=== PATIENT | female | born 1995 | race Caucasian/White ===

== ENCOUNTER 2023-09-10 12:38 | Emergency (ER) | payer OTHER, SELFPAY ==
[2023-09-10 12:51] VITALS: BP 153/82; PULSE 91; RESP 16; TEMP 36.7; O2SAT 100
--- NOTE | 2023-09-10 12:53 | ED.SKABFB ---
HPI - Skin/Abscess/Foreign Bdy General Chief complaint: Skin/Abscess/Foreign Body Stated complaint: Left Under Arm Wound Time Seen by Provider: 09/10/23 12:54 Source: patient Mode of arrival: ambulatory Limitations: no limitations History of Present Illness HPI narrative: 27 y/o female presented for c/o wound to left underarm first noticed about a week ago. Mother states she has applied a salve and Neosporin to the site and says the site appears to be healing. It was more red at onset and has been Draining green pus after a cream colored nodule fell off it. Denies pain to the site. Related Data Home Medications Medication Instructions Recorded Confirmed ergocalciferol (vitamin D2) 1,250 1,250 mcg PO WEEKLY 09/10/23 09/10/23 mcg (50,000 unit) capsule Allergies Allergy/AdvReac Type Severity Reaction Status Date / Time adhesive tape Allergy Redness of Verified 09/10/23 12:59 Skin Review of Systems Review of Systems: CONSTITUTIONAL: Denies body aches, fever, chills, or sweats. EYES: Denies visual changes, redness, or discharge. ENT: Denies rhinorrhea, congestion CARDIOVASCULAR: Denies chest pain, palpitations, or edema. RESPIRATORY: Denies cough or dyspnea. GASTROINTESTINAL: Denies abdominal pain, nausea, vomiting, or diarrhea. SKIN: reports wound left axilla MUSCULOSKELETAL: Denies back pain, joint pain, or myalgia. NEUROLOGIC: Denies headache, numbness, tingling, or weakness. PMFSH Comments At time of signature, I have reviewed and agree with nursing past medical, surgical, social and family history unless otherwise noted. Please see nursing chart for further information. There is no relevant family history pertinent to the presenting complaint Exam Narrative: GENERAL: Well-appearing HEAD: Normocephalic, atraumatic. EYES: conjunctivae clear, and EOMI. ENT: Mucous membranes moist. Oropharynx without edema, erythema or lesions. NECK: Supple. No lymphadenopathy CHEST: Clear to auscultation. HEART: Regular rate and rhythm. SKIN: Warm, dry; excessively dry hands and eyebrows c/w eczema. Left axilla with approx 4mm superficial open wound, no active drainage, nontender, no fluctuance or surrounding induration. Surrounding skin is erythematous c/w adhesive contact dermatitis. NEURO: Alert and oriented x3. Course Course Emergency Course: Patient is aware of diagnosis, understands and agrees to treatment plan. Anticipatory guidance given. Patient agrees to follow-up as directed and is aware of reasons to seek care at the emergency department. Portions of this record may have been created with voice recognition software Level of Care: Express Care Visit Vital Signs Vital signs: Vital Signs Temperature 98.1 F 09/10/23 12:51 Pulse Rate 91 09/10/23 12:51 Respiratory Rate 16 09/10/23 12:51 Blood Pressure 153/82 H 09/10/23 12:51 Pulse Oximetry 100 09/10/23 12:51 Oxygen Delivery Room Air 09/10/23 12:51 Temperature 98.1 F 09/10/23 12:51 Pulse Rate 91 09/10/23 12:51 Respiratory Rate 16 09/10/23 12:51 Blood Pressure 153/82 H 09/10/23 12:51 Pulse Oximetry 100 09/10/23 12:51 Oxygen Delivery Room Air 09/10/23 12:51 Reviewed MDM - Skin/Abscess/Foreign Bdy MDM Narrative Medical decision making narrative: Discussed physical exam findings c/w folliculitis to left axilla along with adhesive dermatitis r/t the bandaid. Advised supportive measures and signs/symptoms to go to the ER. Pt is appropriate for outpt treatment and f/u. Instructed patient to go to nearest ER immediately for any worsening symptoms including but not limited to: fever, spreading rash, pain, sore throat, headache, dizziness, chest pain, trouble breathing, or any symptoms concerning to the patient. Differential Diagnosis Differential diagnosis: Likely abscess of skin or subcutaneous tissue, urticaria, herpes zoster, cellulitis and contact dermatitis Discharge Plan Discharge
== END 2023-09-10 13:15 | disposition home or self-care (01) ==
PROVIDERS: Emergency Provider Nurse Practitioner Family; PCP Internal Medicine Infectious Disease
DX: L73.9 Follicular disorder, unspecified (principal); L23.1 Allergic contact dermatitis due to adhesives
CPT/HCPCS: 99203; G0463